=== PATIENT | male | born 1980 | race Caucasian/White ===

== ENCOUNTER 2018-05-19 13:41 | Emergency (ER) | payer MEDICAID ==
[~2018-05-19] VITALS: Ht 160 cm; Wt 85.3 kg
[2018-05-19 13:44] VITALS: Ht 160 cm; Wt 85.3 kg
[2018-05-19 15:28] LABS: BASOPHIL % 0.8 % (0-2); PLATELET COUNT 336 x10^3mcL (130-400); RED CELL DISTRIBUTION WIDTH 13.4 % (11.5-14.5)
[2018-05-19 15:35] LABS: CALCIUM 8.8 mg/dL (8.5-10.1); CARBON DIOXIDE 26.8 mmol/L (21-32); CHLORIDE SERUM 100 mmol/L (98-107); CREATININE SERUM 0.9 mg/dL (0.7-1.3); GFR1 > 60 mL/min; GLUCOSE SERUM 152 mg/dL (74-106); SODIUM SERUM 135 mmol/L (136-145)
[2018-05-19 16:56] LABS: AMPHETAMINE QUAL UR NONE DETECTED (See below)
[2018-05-19 17:21] VITALS: BP 140/101
== END 2018-05-19 17:21 | disposition home or self-care (01) ==
LOC: ED 13:41
PROVIDERS: Emergency Medicine
DX: R20.2 Paresthesia of skin (principal); R42 Dizziness and giddiness; E78.5 Hyperlipidemia, unspecified; I10 Essential (primary) hypertension
CPT/HCPCS: 36415

== ENCOUNTER 2018-07-05 15:14 | Emergency (ER) | payer MEDICAID ==
[~2018-07-05] VITALS: Ht 167.6 cm; Wt 86.6 kg
[2018-07-05 15:48] VITALS: Ht 167.6 cm; Wt 86.6 kg
[2018-07-05 19:01] VITALS: BP 129/83
== END 2018-07-05 19:01 | disposition home or self-care (01) ==
LOC: ED 15:14
DX: G44.209 Tension-type headache, unspecified, not intractable (principal); I10 Essential (primary) hypertension; E78.5 Hyperlipidemia, unspecified
CPT/HCPCS: J1885; Q0162

== ENCOUNTER 2020-09-20 03:49 | Emergency (ER) | payer MEDICAID ==
[~2020-09-20] VITALS: Ht 157.5 cm; Wt 94.8 kg
[2020-09-20 04:00] VITALS: Ht 157.5 cm; Wt 94.8 kg
[2020-09-20 04:20] LABS: PLATELET COUNT 301 x10^3mcL (152-348); RED CELL DISTRIBUTION WIDTH 13.5 % (12.1-16.2)
[2020-09-20 04:26] LABS: CALCIUM 9.3 mg/dL (8.5-10.1); CARBON DIOXIDE 31.5 mmol/L (21-32); CHLORIDE SERUM 99 mmol/L (98-107); CREATININE SERUM 1.1 mg/dL (0.7-1.3); GFR1 > 60 mL/min; GLUCOSE SERUM 154 mg/dL (74-106); POTASSIUM SERUM 4.6 mmol/L (3.5-5.1); SODIUM SERUM 137 mmol/L (136-145)
[2020-09-20 04:31] LABS: ALBUMIN 3.4 g/dL (3.4-5.0); ALKALINE PHOSPHATASE 111 U/L (46-116); ALT/SGPT 83 U/L (16-63); AST/SGOT 37 U/L (15-37); BILIRUBIN TOTAL 0.9 mg/dL (0.20-1.00); LIPASE 128 IU/L (73-393)
[2020-09-20 04:35] LABS: TOTAL PROTEIN, SERUM 8.4 g/dL (6.4-8.2)
[2020-09-20] MEDS ORDERED: PEPCID AC20 M2 PO (06:22)
[2020-09-20] MEDS ORDERED: MAALOX MAXIMUM355 ML PO (06:22)
[2020-09-20 08:26] VITALS: BP 134/88
== END 2020-09-20 08:26 | disposition home or self-care (01) ==
LOC: ED 03:49
PROVIDERS: Student in an Organized Health Care Education/Training Program
DX: R10.13 Epigastric pain (principal); R10.11 Right upper quadrant pain; I10 Essential (primary) hypertension; E78.5 Hyperlipidemia, unspecified
CPT/HCPCS: J2270; J2405; J3490; J7030